=== PATIENT | female | born 1980 | race Caucasian/White ===

== ENCOUNTER 2018-10-01 10:06 | Emergency (ER) | payer OTHER ==
[2018-10-01 10:13] VITALS: BMI 22.4
--- NOTE | 2018-10-01 10:47 | PDOC ---
History of Present Illness - General Chief Complaint: Pain, Acute Stated Complaint: ABD PAIN Time Seen by Provider: 10/01/18 10:47 History Source: Patient Exam Limitations: No Limitations - History of Present Illness Initial Comments: Pt is a 38 yo F, with no significant PMH, who is presenting with 4 days of RLQ abdominal pain. Pt states the pain is sharp and constant and has not migrated. The pain does not radiate to her groin or back. The pain is worsened with movement and flexion at the hip. The pain has also been associated with urinary urgency, frequency, and dysuria. The pt also states she has had copious "bad smelling" vaginal discharge. Pt states she has 1 regular sexual partner, but desires STI testing at this time. Pt denies any fevers/chills, headache, vision changes, syncope, chest pain, palpitations, SOB, nausea/vomiting, diarrhea/ constipation, or leg swelling. LMP: 24 of September and was normal for pt. Social: Pt denies any cigarette, alcohol, or drug use. Pt denies any recent travel or sick contacts. Surgical: (2) with "surgery to make me not be able to get ". Family: no relevant history. 10/02/18 08:21 Past History - Travel Traveled outside of the country in the last 30 days: No Close contact w/someone who was outside of country & ill: No - Past Medical History Allergies/Adverse Reactions: Allergies Allergy/AdvReac Type Severity Reaction Status Date / Time No Known Allergies Allergy Verified 10/01/18 10:10 Home Medications: Ambulatory Orders Nitrofurantoin Monohyd/M-Cryst [Macrobid -] 100 mg PO BID 5 Days #9 capsule 01/14 Cardiac Disorders: No Diabetes: No HTN: No Hypercholesterolemia: No Other medical history: DENIES. - Reproductive History Is Patient Now?: No - Suicide/Smoking/Psychosocial Hx Smoking History: Never smoked Information on smoking cessation initiated: No Hx Alcohol Use: No Substance Use Type: None Review of Systems - Review of Systems Able to Perform ROS?: Yes Is the patient limited Kuwaiti proficient: No Constitutional: Yes: Weight Stable. No: Chills, Diaphoresis, Fever, Loss of Appetite HEENTM: No: Recent change in vision, Throat Pain, Throat Swelling, Difficulty Swallowing Respiratory: No: Cough, Shortness of Breath Cardiac (ROS): No: Chest Pain, Lightheadedness, Syncope ABD/GI: Yes: Abdominal cramping. No: Abdominal Distended, Abd. Pain w/ defecation, Blood Streaked Bowels, Constipated, Diarrhea, Nausea, Poor Appetite , Poor Fluid Intake, Vomiting : Yes: Burning, Dysuria, Discharge, Frequency, Pain, Urgency. No: Flank Pain , Hematuria, Incontinence Musculoskeletal: No: Back Pain, Joint Pain Integumentary: No: Rash Neurological: No: Headache, Weakness, Dizziness Psychiatric: No: Change in Appetite Endocrine: No: Increased Urine, Change in Weight Hematologic/Lymphatic: No: Anemia, Blood Clots, Easy Bleeding All Other Systems: Reviewed and Negative *Physical Exam - Vital Signs Last Vital Signs Temp Pulse Resp BP Pulse Ox 97.3 F L 81 19 112/65 100 10/01/18 10:11 10/01/18 10:11 10/01/18 10:11 10/01/18 10:11 10/01/18 10:11 - Physical Exam General Appearance: Yes: Nourished, Appropriately Dressed, Mild Distress (Pt appears to be in pain) HEENT: positive: EOMI, PELON, Normal ENT Inspection, Normal Voice, Pharynx Normal , Hearing Grossly Normal. negative: Scleral Icterus (R), Scleral Icterus (L), Pharyngeal Erythema, Tonsillar Exudate, Tonsillar Erythema, Nasal Congestion Neck: positive: Trachea midline, Normal Thyroid, Supple. negative: Tender, Rigid, Lymphadenopathy (R), Lymphadenopathy (L) Respiratory/Chest: positive: Lungs Clear, Normal Breath Sounds. negative: Chest Tender, Respiratory Distress, Accessory Muscle Use Cardiovascular: positive: Regular Rhythm, Regular Rate, S1, S2. negative: Edema , JVD, Murmur Vascular Pulses: Carotid (R): 4+, Carotid (L): 4+ Female Pelvic Exam: positive: normal external exam, cervical os closed, normal adnexa, normal size ovaries. negative: CMT, discharge (normal, physiologic white discharge, no foul odor), adnexal tenderness, vaginal bleeding Gastrointestinal/Abdominal: positive: Normal Bowel Sounds, Tender (RLQ, no rebound no guarding), Flat, Soft. negative: Organomegaly, Pulsatile Mass, Distended, Guarding, Rebound Rectal Exam: positive: deferred Lymphatic: negative: Adenopathy, Tenderness Musculoskeletal: positive: Normal Inspection. negative: CVA Tenderness Extremity: positive: Normal Capillary Refill, Normal Inspection, Normal Range of Motion, Pelvis Stable. negative: Tender Integumentary: positive: Normal Color, Dry, Warm. negative: Jaundice, Clammy, Diaphoresis, Rash Neurologic: positive: development technologist II-XII NML intact, Fully Oriented, Alert, Normal Mood/ Affect, Normal Response, Motor Strength 5/5 Moderate Sedation - Procedure Monitoring Vital Signs: Procedure Monitoring Vital Signs Temperature 97.3 F L 10/01/18 10:11 Pulse Rate 81 10/01/18 10:11 Respiratory Rate 19 10/01/18 10:11 Blood Pressure 112/65 10/01/18 10:11 O2 Sat by Pulse Oximetry (%) 100 10/01/18 10:11 ED Treatment Course - LABORATORY CBC & Chemistry Diagram: 10/01/18 11:40 10/01/18 11:40 Medical Decision Making - Medical Decision Making Pt was seen at bedside, also will be seen by attending Dr. Pires. Pt presenting with 4 days of RLQ abdominal pain. Pt states the pain is sharp and constant and has not migrated. The pain does not radiate to her groin or back. The pain is worsened with movement and flexion at the hip. The pain has also been associated with urinary urgency, frequency, and dysuria. The pt also states she has had copious "bad smelling" vaginal discharge. Pt states she has 1 regular sexual partner, but desires STI testing at this time. Pt denies any fevers/ chills, headache, vision changes, syncope, chest pain, palpitations, SOB, nausea /vomiting, diarrhea/constipation, or leg swelling. Pt afebrile, vitals stable. PE showed RLQ abdominal tenderness, no rebound, no guarding. No CVA tenderness. Heart and lung sounds clear. Vaginal exam showed physiologic discharge, no foul smelling or discolored drainage. No CMT or erythema. Considering UTI vs pyelo vs PID vs ovarian cyst/torsion. Limited concern for appendicitis as pt is afebrile, had symptoms x4 days. Ordered work-up including CBC, CMP, UA, gonorrhea/trichomonas/chlamydia endocervical swab, urine culture, urine , and transvaginal US. Provided 650 mg PO tylenol for improvement of pain. Will continue to reassess pt and monitor for symptomatic improvement. 10/01/18 11:53 CBC: no increased WBC UA showed UTI (+leuk esterase, +WBC). Pt pending transvaginal US. 10/01/18 12:43 Pt in US, pending results. 10/01/18 13:28 IMPRESSION: 1. Thickened endometrium. 2. Small bilateral ovarian cysts. 3. Dilated vascular structures within the right adnexa of uncertain etiology. Clinical correlation and follow-up recommended. Please see above discussion. 10/01/18 15:06 Pt can be discharged to home with follow-up. Pt advised to follow-up with PCP in 1-2 days and has been referred to Plumber Supervisor (Dr. Gutierrez). Strict return precautions provided with pt understanding. 10/01/18 15:08 *DC/Admit/Observation/Transfer Diagnosis at time of Disposition: RLQ abdominal pain Urinary tract infection Qualifiers: Urinary tract infection type: site unspecified Hematuria presence: with hematuria Qualified Code(s): N39.0 - Urinary tract infection, site not specified - Discharge Dispostion Disposition: HOME Condition at time of disposition: Improved Decision to Admit order: No - Prescriptions Prescriptions: Nitrofurantoin Monohyd/M-Cryst [Macrobid -] 100 mg PO BID 5 Days #9 capsule - Referrals Referrals: Ese Posadas [Primary Care Provider] - Tamiko Gutierrez MD [Staff Physician] - - Patient Instructions Printed Discharge Instructions: DI for Urinary Tract Infection (UTI), DI for Ovarian Cyst Additional Instructions: You were seen in the ER today for abdominal pain. The results of your labs and imaging today showed a small urinary tract infection and ovarian cysts. Please follow-up with your primary care doctor and SALES ENGINEER within 1-2 days to discuss your visit and make sure your symptoms have improved. Please return to the ER if you have any worsening pain, development of fevers or chills, loss of consciousness, inability to tolerate food or fluids, or any other concerns. Print Language: SAO TOMEAN - Post Discharge Activity
--- NOTE | 2018-10-01 11:09 | PDOC ---
Attending Attestation - HPI HPI: 10/01/18 13:03 The patient is a 38 year old female with no significant PMH who presents to the emergency department with right lower quadrant pain for 4 days. The patient reports that her RLQ pain is a 7/10 in severity and is sharp and constant. She sates that her pain is worsened with hip movement. The patient reports some associates dysuria, frequency and urgency. She denies any episodes like this in the past. The patient denies any other symptoms. She denies any fever, chills, nausea, vomiting, diarrhea,. She denies any chest pain, shortness of breath, headache or dizziness. The patient denies any other complaints. Documentation prepared by Rosibel Young, acting as medical clerical assistant for Jina Pires MD. <Rosibel Young - Last Filed: 10/01/18 13:03> - Resident Resident Name: Dior Reilly - ED Attending Attestation I have performed the following: I have examined & evaluated the patient, The case was reviewed & discussed with the resident, I agree w/resident's findings & plan, Exceptions are as noted - Physicial Exam PE: 10/01/18 15:07 On examination: Awake and Alert Answers questions appropriately RRR CTA No lower abd tenderness to palpation Pelvic exam : per Dr Reilly - Medical Decision Making 10/01/18 15:09 Day 4 of right lower abdominal/pelvic pain Pelvic examination does not reveal excessive discharge (GC/chlamydia sent) Laboratory Tests 10/01/18 10/01/18 10/01/18 10:55 11:40 11:40 WBC 5.9 Hgb 12.6 Hct 36.0 Plt Count 235 BUN 12 Creatinine 0.6 Ur Leukocyte Esterase 2+ H Urine WBC (Auto) 5 Urine RBC (Auto) None Ur Epithelial Cells Moderate Urine Mucus Rare Urine HCG, Qual Negative U/S: no evidence of torsion, prominent vessels Will discharge to home Pt to follow up with PMD and Ob as an outpatient Pt given copies of her US Return to the ER for any other concerns or complaints <Jina Pires - Last Filed: 10/02/18 11:11>
[2018-10-01] MEDS ORDERED: ACETAMINOPHEN 325 MG TABLET (FP) PO ONE (11:10)
[2018-10-01 11:31] LABS: URINE APPEARANCE SLCLOUDY; URINE BILIRUBIN NEGATIVE (<2.0 mg/dL); URINE COLOR LTYELLOW; URINE GLUCOSE (UA) NEGATIVE (NEGATIVE); URINE KETONE NEGATIVE (NEGATIVE); URINE LEUK ESTERASE 2+ (NEGATIVE); URINE NITRITE NEGATIVE (NEGATIVE); URINE PROTEIN NEGATIVE (NEGATIVE); URINE UROBILINOGEN NEGATIVE mg/dL (0.2-1.0)
[2018-10-01 11:33] LABS: EPI CELLS MODERATE /HPF (FEW); URINE MUCUS RARE
[2018-10-01 11:34] LABS: HCG,QUALITATIVE URINE NEGATIVE
[2018-10-01 12:15] LABS: BASO % 1.2 % (0-2.0); EOS % 1.4 % (0-4.5); HEMOGLOBIN 12.6 GM/dL (10.7-15.3); LYMPH % 44.3 % (8-40); MCH 31.9 pg (25.7-33.7); MCHC 34.9 g/dl (32.0-36.0); MEAN CELL VOLUME 91.6 fl (80-96); MEAN PLT VOLUME 9.9 fl (7.5-11.1); MONO % 6.1 % (3.8-10.2); PLATELET COUNT 235 K/MM3 (134-434); RBC 3.93 M/mm3 (3.60-5.2); RDW 14.7 % (11.6-15.6); WHITE BLOOD COUNT 5.9 K/mm3 (4.0-10.0)
[2018-10-01] MEDS ORDERED: ACETAMINOPHEN 325 MG TABLET (FP) ONE (12:39)
[2018-10-01 13:33] LABS: ALBUMIN 3.8 g/dl (3.4-5.0); ALK PHOS 111 U/L (45-117); ANION GAP 5 MMOL/L (8-16); BILIRUBIN,TOTAL 0.5 mg/dL (0.2-1); BLOOD UREA NITROGEN 12 mg/dL (7-18); CALCIUM 8.6 mg/dL (8.5-10.1); CHLORIDE 109 mmol/L (98-107); CO2 23 mmol/L (21-32); CREATININE 0.6 mg/dL (0.55-1.3); GLUCOSE,RANDOM 82 mg/dL (74-106); POTASSIUM 4.5 mmol/L (3.5-5.1); SGOT/AST 35 U/L (15-37); SGPT/ALT 36 U/L (13-61); SODIUM 137 mmol/L (136-145); TOT PROT 7.5 g/dl (6.4-8.2)
[2018-10-01 15:05] VITALS: BP 115/62; PULSE 86; TEMP 98.1
[2018-10-01] MEDS ORDERED: NITROFURANTOIN MACROCRYSTAL 50 MG CAPSULE (FP) ONE (15:23)
[2018-10-01] MEDS ORDERED: NITROFURANTOIN MACROCRYSTAL 50 MG CAPSULE (FP) PO SCH (15:30)
== END 2018-10-01 15:36 | disposition home or self-care (01) ==
LOC: JER 10:06
DX: N39.0 Urinary tract infection, site not specified (principal)
CPT/HCPCS: 36415; 76830-TC; 80053; 81003; 81015; 84703; 85025; 87086; 87491; 87591; 87661; 99284-25

== ENCOUNTER 2019-09-13 14:22 | Emergency (ER) | payer OTHER ==
[2019-09-13 14:27] VITALS: BMI 21.0
[2019-09-13] MEDS ORDERED: METHOCARBAMOL 500 MG TABLET PO ONE (16:47)
[2019-09-13] MEDS ORDERED: MECLIZINE HCL 25 MG TABLET (FP) PO ONE (16:47)
[2019-09-13] MEDS ORDERED: IBUPROFEN 400 MG TABLET (FP) PO ONE ×2 (16:47→17:02)
[2019-09-13] MEDS ORDERED: ONDANSETRON *ODT* 4 MG TABLET SL ONE (16:54)
--- NOTE | 2019-09-13 17:00 | PDOC ---
History of Present Illness - General Chief Complaint: Pain Stated Complaint: NECK PAIN Time Seen by Provider: 09/13/19 15:47 History Source: Patient Exam Limitations: Clinical Condition - History of Present Illness Initial Comments: 09/13/19 16:55 Patient with no significant past medical history present with complaint of sudden onset of posterior neck pain upon waking this morning with spasm to neck and bilateral hands and nausea with intermittent dizziness since this morning. Denies any trauma or injury. Denies blurry vision, change in vision, chest pain , shortness of breath. Patient did not take anything for symptoms Is this a multiple visit Asthma Patient?: No Timing/Duration: 4-6 hours Past History - Past Medical History Allergies/Adverse Reactions: Allergies Allergy/AdvReac Type Severity Reaction Status Date / Time No Known Allergies Allergy Verified 09/13/19 14:27 Home Medications: Ambulatory Orders Nitrofurantoin Monohyd/M-Cryst [Macrobid -] 100 mg PO BID 5 Days #9 capsule 01/14 Methocarbamol [Robaxin -] 500 mg PO BID PRN #14 tablet 09/13/19 Methylprednisolone [Medrol Dose Anish] 4 mg PO ASDIR #21 tablet 09/13/19 Ondansetron [Zofran *Odt*] 4 mg SL Q8H PRN #12 od.tablet 09/13/19 Cardiac Disorders: No COPD: No Diabetes: No HTN: No Hypercholesterolemia: No - Psycho Social/Smoking Cessation Hx Smoking History: Never smoked Hx Alcohol Use: No Substance Use Type: None Review of Systems - Review of Systems Able to Perform ROS?: Yes Is the patient limited Macedonian proficient: No Constitutional: No: Chills, Fever, Malaise HEENTM: Yes: Symptoms Reported, See HPI, Other (posterior neck pain). No: Eye Pain, Blurred Vision, Tearing, Recent change in vision, Double Vision, Cataracts , Ear Pain, Ocular Prothesis, Ear Discharge, Nose Pain, Nose Congestion, Tinnitus, Nose Bleeding, Hearing Loss, Throat Pain, Throat Swelling, Mouth Pain , Dental Problems, Difficulty Swallowing, Mouth Swelling Respiratory: No: Symptoms reported, See HPI, Cough, Orthopnea, Shortness of Breath, SOB with Exertion, SOB at Rest, Stridor, Wheezing, Productive cough, Hemoptysis, Other Cardiac (ROS): No: Symptoms Reported, See HPI, Chest Pain, Edema, Irregular Heart Rate, Lightheadedness, Palpitations, Syncope, Chest Tightness, Other ABD/GI: Yes: Symptoms Reported, Nausea. No: Abdominal Distended, Constipated, Diarrhea, Vomiting, Abdominal cramping Musculoskeletal: Yes: Symptoms Reported, See HPI, Muscle Pain (spasm in b/l hands), Neck Pain (posterior neck) Integumentary: No: Symptoms Reported Neurological: Yes: Headache (intrermittent). No: Symptoms reported, Numbness, Paresthesia, Tingling, Weakness, Unsteady Gait All Other Systems: Reviewed and Negative *Physical Exam - Vital Signs Last Vital Signs Temp Pulse Resp BP Pulse Ox 98 F 90 18 112/71 100 09/13/19 14:25 09/13/19 14:25 09/13/19 14:25 09/13/19 14:25 09/13/19 14:25 - Physical Exam 09/13/19 17:00 GENERAL: Well developed, well nourished. Awake and alert. No acute distress. HEENT: Normocephalic, atraumatic. PERRLA, EOMI. No conjunctival pallor. Sclera are non- icteric. Moist mucous membranes. Oropharynx is clear. NECK: Supple. Full ROM. No JVD. Carotid pulses 2+ and symmetric, without bruits. No thyromegaly. No lymphadenopathy. CARDIOVASCULAR: Regular rate and rhythm. No murmurs, rubs, or gallops. Distal pulses are 2+ and symmetric. PULMONARY: No evidence of respiratory distress. MUSCULOSKELETAL Normal range of motion at all joints. No bony deformities .moderate tenderness of bilateral paracervical muscle of cervical spine C2-C7. No midline tenderness. No tenderness to thoracic or lumbar spine. Negative meningeal sign EXTREMITIES: No cyanosis. No clubbing. No edema. No calf tenderness. SKIN: Warm and dry. Normal capillary refill. NEUROLOGICAL: Alert, awake, appropriate. Cranial nerves 2-12 intact. No deficits to light touch upper extremities and lower extremities. No motor deficits in the in face , upper extremities and lower extremities. Normoreflexic in the upper and lower extremities. Normal speech. Gait is normal without ataxia. PSYCHIATRIC: Cooperative. Good eye contact. Appropriate mood and affect. General Appearance: Yes: Nourished, Appropriately Dressed, Mild Distress Medical Decision Making - Medical Decision Making 09/13/19 16:57 Patient with no significant past medical history present with complaint of sudden onset of posterior neck pain upon waking this morning with spasm to neck and bilateral hands and nausea with intermittent dizziness since this morning. Denies any trauma or injury. Denies blurry vision, change in vision, chest pain , shortness of breath. Patient did not take anything for symptoms Exam significant for moderate tenderness of bilateral paracervical muscle of cervical spine C2-C7. No midline tenderness. No tenderness to thoracic or lumbar spine. Negative meningeal sign. Extraocular muscle intact and pupils are equal and reflective to light bilateral. Patient afebrile. Normal sensory exam to bilateral extremities with 5 out of 5 muscle strength of bilateral hands. Symptoms likely torticollis with vertigo from neck spasm. Ibuprofen 800 mg p.o. Robaxin 500 mg p.o. ordered for his pain and spasm. Zofran 4 mg sublingual ordered for nausea and meclizine 25 mg p.o. ordered for vertigo. Reassess after 20 minutes 09/13/19 17:33 Patient reported much improvement with meds of neck pain and nausea with dizziness. Patient stable for outpatient management for torticollis on Medrol pack and Robaxin for pain and spasm with Zofran as needed for nausea with strict follow-up Discharge - Discharge Information Problems reviewed: Yes Clinical Impression/Diagnosis: Torticollis, spasmodic, Vertigo Condition: Stable Disposition: HOME - Admission No - Additional Discharge Information Prescriptions: Methocarbamol [Robaxin -] 500 mg PO BID PRN #14 tablet PRN Reason: neck pain Methylprednisolone [Medrol Dose Anish] 4 mg PO ASDIR #21 tablet Ondansetron [Zofran *Odt*] 4 mg SL Q8H PRN #12 od.tablet PRN Reason: nausea - Follow up/Referral Referrals: Ese Posadas [Primary Care Provider] - - Patient Discharge Instructions Patient Printed Discharge Instructions: DI for Vertigo, DI for Torticollis Additional Instructions: Your symptoms likely neck spasm and vertigo from neck spasm. Take prescribed medication as prescribed for pain and spasm. Apply hot compress to neck 2-3 times a day as needed for pain. Come back to emergency room if worsening headache with vomiting, fever or worsening dizziness otherwise follow-up with primary care Laura sntomas probablemente son espasmos en el kalyn y vrtigo por espasmos en el kalyn. Stover los medicamentos recetados segn lo prescrito para el dolor y el espasmo. Aplique almita compresa caliente en el kalyn 2-3 veces al da segn sea necesario para el dolor. Regrese a la frannie de emergencias si empeora el dolor de pricila con vmitos, fiebre o empeora el mareo, de lo contrario, realice un seguimiento con atencin primaria Print Language: ANGOLAN - Post Discharge Activity
[2019-09-13] MEDS ORDERED: ONDANSETRON *ODT* 4 MG TABLET ONE (17:02)
[2019-09-13] MEDS ORDERED: METHOCARBAMOL 500 MG TABLET ONE (17:02)
[2019-09-13] MEDS ORDERED: MECLIZINE HCL 25 MG TABLET (FP) ONE (17:03)
[2019-09-13 18:13] VITALS: BP 114/64; PULSE 85; TEMP 98.2
== END 2019-09-13 18:12 | disposition home or self-care (01) ==
LOC: JERFT 14:22
DX: M43.6 Torticollis (principal); R42 Dizziness and giddiness
CPT/HCPCS: 99282-25; Q0162